=== PATIENT | male | born 1950 ===

== ENCOUNTER 2018-08-21 06:40 | Day surgery (SDC) | payer BC ==
[2018-08-14 09:40] VITALS: BMI 26.6
[2018-08-21] MEDS ORDERED: Metoprolol Succinate 25 mg XL Tab PO ONE ×2 (08:49→09:00)
[2018-08-21] MEDS ORDERED: ceFAZolin IV 2 gm in Dextrose 2 GM/50 ML BAG IVPB ONE (09:15)
[2018-08-21] MEDS ORDERED: Lidocaine 2% MPF (5 ml) Inj ONE ×2 (09:15→10:01)
[2018-08-21] MEDS ORDERED: GELATIN SPONGE,ABSORB/PORCINE 1 EACH SPONGE TP ONE (09:17)
[2018-08-21] MEDS ORDERED: Midazolam 2 MG/2 ML VIAL ONE (09:23)
[2018-08-21] MEDS ORDERED: Propofol 10 mg/ml Inj (20 ML) ONE (09:23)
--- NOTE | 2018-08-21 09:33 | CP.SDSHP ---
Same Day Surgery H & P - History Proposed Procedure: See H&P in the chart, no changes - Allergies Allergies: Allergies No Known Allergies Allergy (Verified 08/21/18 06:52) - Physical Exam Vital Signs: Vital Signs 08/21/18 08/21/18 07:23 07:27 Temperature 98.1 F Pulse Rate 66 66 Respiratory 18 Rate Blood Pressure 116/69 O2 Sat by Pulse 94 L Oximetry Short Stay Discharge - Short Stay Discharge Admitting Diagnosis/Reason for Visit: K64.9 Disposition: HOME/ ROUTINE Referrals: Jocelyn Hickey MD [Primary Care Provider] -
[2018-08-21] MEDS ORDERED: Lactated Ringer's 1,000 ML IV ONE ×2 (09:35→11:10)
[2018-08-21] MEDS ORDERED: Lidocaine 2% Inj (20ml) IJ ONE (10:09)
[2018-08-21] MEDS ORDERED: Neostigmine 1:1000 (1 mg/ml) Inj ONE (10:12)
[2018-08-21] MEDS ORDERED: Sodium Chloride 0.9% 10 ML IV ONE (10:21)
[2018-08-21] MEDS ORDERED: Oxycodone/Acetaminophen 5/325 mg Tab PO PRN ×2 (10:34→10:36)
--- NOTE | 2018-08-21 10:40 | PCM.SURG1 ---
Surgeon's Initial Post Op Note - Surgeon's Notes Surgeon: Axel Reversing Mill Roller: Type of Anesthesia: General Endo Anesthesia Administered By: Makayla Pre-Operative Diagnosis: external hemorrhoid Operative Findings: internal hemorrhoids, 2 engorged columns Post-Operative Diagnosis: same Operation Performed: External hemorrhoidectomy Specimen/Specimens Removed: hemorrhoid Estimated Blood Loss: EBL {In ML}: 1 Blood Products Given: N/A Drains Used: No Drains Post-Op Condition: Good Date of Surgery/Procedure: 08/21/18 Time of Surgery/Procedure: 09:20
[2018-08-21 12:06] VITALS: RESP 18
[2018-08-21 13:40] VITALS: BP 106/65; PULSE 69; TEMP 97.5; O2SAT 96
--- NOTE | 2018-08-24 09:19 | OP ---
PROCEDURE DATE: 08/21/18 PREOPERATIVE DIAGNOSIS: External hemorrhoid. POSTOPERATIVE DIAGNOSIS: External hemorrhoid. PROCEDURE: External hemorrhoidectomy. SURGEON: Chris Reyna MD PROTOTYPE ENGINEER MANAGER: Helder Mercer DO. TYPE OF ANESTHESIA: General with endotracheal intubation. ANESTHESIOLOGIST: Dr. Gordon. IV FLUIDS: Crystalloids. ESTIMATED BLOOD LOSS: 1 mL. INTRAOPERATIVE FINDINGS: External hemorrhoid at 7 o'clock position as well as 2 columns of the internal hemorrhoids. SPECIMEN: External hemorrhoid. BRIEF HISTORY: Mr. Valderrama is a very pleasant 68-year-old gentleman who presented to my office complaining of hemorrhoids that occasionally will swell up and give him pain so he wish for the hemorrhoid to be excised. All the risks and benefits of the procedure were explained to the patient and with the patient having a full understanding of all the risks and benefits involved, informed consent was obtained and the patient was taken to the operating for above-stated procedure. DESCRIPTION OF PROCEDURE: The patient was brought into the operating room and was intubated in a stretcher and subsequent to that was placed in a jackknife position. Once this was accomplished, the retraction of the buttocks was obtained with white silk tape and subsequent to that the patient's perianal area was prepped with Betadine and draped in a standard surgical fashion. Prior to the beginning of the procedure, the patient received prophylactic Ancef antibiotic. Time-out was called in room and everyone in the room were in agreement. Using digital rectal examination, the rectal vault was examined. There appeared to be one external hemorrhoid at 7 o'clock position, as well as 2 columns of engorged internal hemorrhoids. There appeared to be no palpable masses on digital rectal examination and no gross blood. At this point in time, the external hemorrhoid at 7 o'clock position was grabbed with a hemorrhoid clamp and using #15 blade scalpel knife, the anoderm was incised and subsequent to that using the electrical cautery, the hemorrhoid was transacted off and passed off to the [facility] as a specimen. At this point in time, hemostasis was achieved with electrical cautery. Subsequent to that, the anoderm defect was closed with several interrupted 3-0 chromic sutures and once this was accomplished and hemostasis was confirmed, the incision was infiltrated with 2% lidocaine anesthetic. Subsequent to that, the patient's perianal area was washed and dried and the patient was flipped back to the stretcher, extubated by the anesthesia team, and transferred to the recovery room in a stable condition. At the end of the procedure, all instrument counts, needles and sponges were correct. Chris Reyna MD
== END 2018-08-21 13:55 | disposition home or self-care (01) ==
LOC: H.OPSURG 06:40
PROVIDERS: ATTEND Surgery
DX: K64.9 Unspecified hemorrhoids (principal); E78.5 Hyperlipidemia, unspecified; I10 Essential (primary) hypertension; K64.4 Residual hemorrhoidal skin tags
CPT/HCPCS: 46250; 88304; J0690; J2001; J2250; J2704; J2710; J3010; J7030; J7120

== ENCOUNTER 2018-10-23 07:36 | Day surgery (SDC) | payer BC ==
[2018-10-12 11:55] VITALS: BMI 25.7
[2018-10-23] MEDS ORDERED: Metoprolol Succinate 25 mg XL Tab PO STA (08:36)
[2018-10-23] MEDS ORDERED: Metoprolol Succinate 25 mg XL Tab PO ONE (08:50)
[2018-10-23] MEDS ORDERED: Lidocaine 4% (Laryng-O-Jet) Kit MM ONE (09:02)
[2018-10-23] MEDS ORDERED: Propofol 10 mg/ml Inj (20 ML) ONE (09:02)
[2018-10-23] MEDS ORDERED: Lidocaine 1% 5ml Abboject ONE (09:02)
[2018-10-23] MEDS ORDERED: Succinylcholine 200 mg/10 ml Inj IV ONE ×2 (09:02→11:17)
[2018-10-23] MEDS ORDERED: Midazolam 2 MG/2 ML VIAL ONE (09:02)
[2018-10-23] MEDS ORDERED: Lidocaine 1% Inj (20ml) ONE (09:48)
[2018-10-23] MEDS ORDERED: Bupivacaine 0.5% Inj(30mL) ONE (09:48)
[2018-10-23] MEDS ORDERED: ceFAZolin IV 1 gm in Dextrose 2 GM/100 ML BAG IVPB ONE (09:48)
[2018-10-23] MEDS ORDERED: Lactated Ringer's 1,000 ML IV ONE ×5 (10:32→11:55)
[2018-10-23] MEDS ORDERED: Absorbable Gelatin Sponge Size 100 TP ONE (11:13)
[2018-10-23] MEDS ORDERED: Sodium Chloride 0.9% 500 ML IV ONE (11:25)
[2018-10-23] MEDS ORDERED: HYDROmorphone 0.5 mg/0.5 ml ISec IVP PRN (11:28)
--- NOTE | 2018-10-23 11:28 | CP.SDSHP ---
Same Day Surgery H & P - History Proposed Procedure: Hemorrhoidectomy Pre-Op Diagnosis: SAme - Previous Medical/Surgical History Cardiac: Hypertension Pain: 2.Mild Pain Previous Surgical History: hemorrhoidectomy - Allergies Allergies: Allergies No Known Allergies Allergy (Verified 10/23/18 07:48) - Current Medications Current Medications: See chart - Physical Exam General Appearance: NAD Vital Signs: Vital Signs 10/23/18 10/23/18 08:22 08:26 Temperature 97.7 F Pulse Rate 70 70 Respiratory 18 Rate Blood Pressure 107/67 O2 Sat by Pulse 95 Oximetry Mental Status: Alert & Oriented x3 Neuro: WNL Heart: WNL Lungs: WNL GI: WNL - {Optional Preform as Required} Abdomen: WNL Rectal: Other (R 11o clock hemorrhoid, L lateral hemorrhoid) Integument: WNL MEDICAL AFFAIRS MANAGER: WNL Ortho: WNL ENT: WNL - Impression Impression: Hemorrhoids Pt. Evaluated Today:Candidate for Anesthesia & Procedure: Yes - Date & Time Date: 10/23/18 Time: 11:27 Short Stay Discharge - Short Stay Discharge Admitting Diagnosis/Reason for Visit: K64.9 Disposition: HOME/ ROUTINE Referrals: Jocelyn Hickey MD [Primary Care Provider] - Instructions: Hemorrhoidectomy (DC) Additional Instructions (Diet, Activity): follow up at Dr. Reyna's office in 1-2 weeks. There is white form in the rectum. It will come out when defecate. Take pain med as needed. Take over the counter stool softner
--- NOTE | 2018-10-23 11:31 | PCM.SURG1 ---
Surgeon's Initial Post Op Note - Surgeon's Notes Surgeon: Dr. Reyna Refractive Surgeon: Kajal Palma PGY3 Type of Anesthesia: General Endo, Local Anesthesia Administered By: Can Pre-Operative Diagnosis: hemorrhoids Operative Findings: 11 oclock R hemorrhoid external and internal [id number], L lateral hemorrhoid Post-Operative Diagnosis: hemorrhoids Operation Performed: Hemorrhoidectomy of 11 oclock R hemorrhoid external and internal [id number]. closed with interrupted chromic stitches Specimen/Specimens Removed: 11 oclock R hemorrhoid external and internal [id number] Estimated Blood Loss: EBL {In ML}: 20 Blood Products Given: N/A Drains Used: No Drains Post-Op Condition: Good Date of Surgery/Procedure: 10/23/18 Time of Surgery/Procedure: :31
[2018-10-23 13:12] VITALS: RESP 18; O2SAT 94
[2018-10-23 14:49] VITALS: BP 107/64; PULSE 60; TEMP 97.5
--- NOTE | 2018-10-23 19:36 | OP ---
PROCEDURE DATE: 10/23/2018 PREOPERATIVE DIAGNOSIS: Hemorrhoid. POSTOPERATIVE DIAGNOSIS: Hemorrhoid. PROCEDURE: Hemorrhoidectomy. SURGEON: Chris Reyna MD. HEAVY FORGING MACHINE OPERATOR: Dr. Palma. TYPE OF ANESTHESIA: General endotracheal intubation. ANESTHESIA ADMINISTERED BY: Dr. North. IV FLUID INTAKE: Crystalloids. ESTIMATED BLOOD LOSS: 20 mL. INTRAOPERATIVE FINDINGS: Engorged hemorrhoid at the 11 o'clock position on the right side. SPECIMEN: Hemorrhoid. BRIEF HISTORY: The patient is a very pleasant 68-year-old gentleman who is known to me from his prior one column hemorrhoidectomy. The patient did well after his initial surgery and re-presented to the office asking for the other 2 columns to be excised. All the risks and benefits of the procedure were explained to the patient and with the patient having a full understanding of all the risks and benefits involved, informed consent was obtained and the patient was taken to the operating for above-stated procedure. DESCRIPTION OF PROCEDURE: The patient was brought into the operating room and was intubated in a stretcher. Bilateral Flowtron boots were applied to patient's lower extremities. Subsequent to that, the patient was placed in a prone position on the operating room table. Subsequent to that, a retraction of the buttocks was obtained with white silk tape and subsequent to that the patient's buttock area and perianal area were prepped with Betadine and draped in a standard surgical fashion. Prior to the beginning of the procedure, time-out was called in the room and everyone in the room were in agreement. The patient received prophylactic Ancef antibiotic prior to the incision time. Using digital rectal examination, the rectal vault was examined. There appeared to be a no palpable masses, however there was a palpable internal hemorrhoid at 11 o'clock position. At this point in time, the anal retractor was inserted into patient's anal canal and the anal canal was inspected. There appeared to be a well healed scar from prior one column hemorrhoidectomy, however at the 11 o'clock position the hemorrhoid appeared to be very engorged and had both internal and external component to it. There also appeared to be a second column of hemorrhoid that was mildly engorged. So, I made a decision to take the column a the 11 o'clock positions since it was the biggest one. Hemorrhoid clamp was placed on the hemorrhoid and subsequent to that, using 15-blade scalpel knife, the anoderm as well as the distal rectum mucosa were incised and subsequent to that hemorrhoid was transected off using electrical cautery. At this point in time, the hemorrhoids was passed off to the [facility] as a specimen. At this point in time, the hemostasis was achieved with electrical cautery. The patient's rectal vault was irrigated and dried, hemostasis was confirmed. At this point in time, the anoderm defect as well as defect of the distal rectal mucosa were closed with interrupted 3-0 chromic sutures and a SH needle and once the approximation was satisfactory, the wound was injected with 10 mL of 0.5% Marcaine anesthetic. The patient's perianal area and buttocks were washed and dried and a rolled up large Gelfoam was inserted into the anal canal. At this point in time, the patient was successfully placed back on a stretcher, was successfully extubated by the anesthesia team, and taken to the recovery room in a stable condition. At the end of the procedure, all instrument counts, needles and sponges were correct. Chris Reyna MD
== END 2018-10-23 14:30 | disposition home or self-care (01) ==
LOC: H.OPSURG 07:36
PROVIDERS: ATTEND Surgery
DX: K64.8 Other hemorrhoids (principal); I10 Essential (primary) hypertension
CPT/HCPCS: 46260; 88304; J0330; J0690; J1885; J2250; J2704; J2765; J3010; J7030; J7120